=== PATIENT | female | born 1970 | race Caucasian/White ===

== ENCOUNTER 2017-05-13 01:19 | Emergency (ER) | payer BC ==
[2017-05-13 03:03] LABS: ADD MAN DIFF? NO
[2017-05-13 03:04] LABS: ABNORMAL IP MESSAGE 1; BASOPHILS % 0.2 % (0.0-2.0); EOSINOPHILS % 0.7 % (0.0-7.0); HEMATOCRIT 37.3 % (37.0-47.0); HEMOGLOBIN 12.6 g/dl (12.0-16.0); LYMPHOCYTES # 0.4 10^3/ul (0.8-2.9); LYMPHOCYTES % 8.7 % (15.0-51.0); MEAN CORPUSCULAR HEMOGLOBIN 35.1 pg (29.0-33.0); MEAN CORPUSCULAR HGB CONC 33.8 g/dl (32.0-37.0); MEAN CORPUSCULAR VOLUME 103.9 fl (82.0-101.0); MEAN PLATELET VOLUME 10.5 fl (7.4-10.4); MONOCYTE # 0.3 10^3/ul (0.3-0.9); MONOCYTES % 5.9 % (0.0-11.0); NEUTROPHIL # 3.9 10^3/ul (1.6-7.5); NEUTROPHILS % 84.3 % (39.0-77.0); PLATELET COUNT 98 10^3/UL (140-415); RED BLOOD COUNT 3.59 10^6/ul (4.20-5.40); RED CELL DISTRIBUTION WIDTH 15.4 % (11.5-14.5)
[2017-05-13 03:04] LABS: WHITE BLOOD COUNT 4.6 10^3/ul (4.8-10.8)
[2017-05-13 03:06] LABS: POSITIVE DIFF @See below
[2017-05-13] MEDS: SODIUM CHLORIDE 0.9% 1L BAG IV* (03:06)
[2017-05-13] MEDS: ACETAMINOPHEN 650MG/20.3ML CUP PO (03:06)
[2017-05-13] MEDS: ONDANSETRON 4 MG INJ IV (03:06)
[2017-05-13] MEDS: CEFTRIAXONE 1 GM/50 ML (PMX) 50 ML IVPB (03:11)
[2017-05-13 03:23] LABS: INR 1.21; PROTIME 15.5 Sec (11.9-14.9); PT RATIO 1.2
[2017-05-13 03:24] LABS: ALANINE AMINOTRANSFERASE 61 IU/L (13-69); ALBUMIN 3.5 g/dl (3.3-4.9); ALBUMIN/GLOBULIN RATIO 0.67; ALKALINE PHOSPHATASE 123 IU/L (42-121); ANION GAP 18 (8-16); ASPARTATE AMINO TRANSFERASE 75 IU/L (15-46); BILIRUBIN,INDIRECT 0.9 mg/dl (0-1.1); BILIRUBIN,TOTAL 0.9 mg/dl (0.2-1.3); BLOOD UREA NITROGEN 12 mg/dl (7-20); CALCIUM 8.6 mg/dl (8.4-10.2); CARBON DIOXIDE 25 mmol/L (21-31); CHLORIDE 110 mmol/L (97-110); CREATININE 0.77 mg/dl (0.44-1.00); GLUCOSE 100 mg/dl (70-220); LIPASE 189 U/L (23-300); PARTIAL THROMBOPLASTIN TIME 32.9 Sec (25.0-35.0); POTASSIUM 3.8 mmol/L (3.5-5.1); SODIUM 149 mmol/L (135-144); TOTAL PROTEIN 8.7 g/dl (6.1-8.1)
[2017-05-13 03:25] LABS: LACTIC ACID 1.9 mmol/L (0.5-2.0)
[2017-05-13 03:36] LABS: TROPONIN-I 0.103 ng/ml (0.00-0.12)
[2017-05-13 04:20] LABS: ADD UMIC YES; UR ASCORBIC ACID NEGATIVE (NEGATIVE); UR BILIRUBIN (Dip) NEGATIVE (NEGATIVE); UR BLOOD (Dip) 1+ mg/dL (NEGATIVE); UR CLARITY SLIGHTLY CLOUDY (CLEAR); UR COLOR YELLOW (YELLOW); UR GLUCOSE (Dip) NEGATIVE (NEGATIVE); UR KETONES (Dip) TRACE mg/dL (NEGATIVE); UR LEUKOCYTE ESTERASE (Dip) NEGATIVE Leu/ul (NEGATIVE); UR MUCUS MODERATE /HPF (NONE SEEN); UR NITRITE (Dip) NEGATIVE (NEGATIVE); UR RBC 1 /HPF (0-5); UR SPECIFIC GRAVITY (Dip) 1.023 (1.003-1.030); UR TOTAL PROTEIN (Dip) NEGATIVE (NEGATIVE); UR UROBILINOGEN (Dip) NEGATIVE (NEGATIVE); UR WBC 1 /HPF (0-5)
== END 2017-05-13 04:41 | disposition home or self-care (01) ==
LOC: E/R 01:19
DX: E86.0 Dehydration (principal); R19.7 Diarrhea, unspecified; M35.9 Systemic involvement of connective tissue, unspecified; R07.9 Chest pain, unspecified
CPT/HCPCS: 36415; 71045; 80053; 81001; 83605; 83690; 84484; 85025; 85610; 85730; 87040; 87086; 87400; 93005; 96374; 96375; 99285-25

== ENCOUNTER 2018-10-09 10:56 | Emergency (ER) | payer BC ==
[2018-10-09] MEDS: LIDOCAINE/MYLANTA 40 ML BTL PO (11:41)
[2018-10-09] MEDS: METOCLOPRAMIDE 10 MG INJ IV (11:41)
[2018-10-09] MEDS: FAMOTIDINE 20 MG TAB PO (11:41)
[2018-10-09 11:53] LABS: ADD MAN DIFF? NO
[2018-10-09 11:54] LABS: WHITE BLOOD COUNT 3.2 10^3/ul (4.8-10.8)
[2018-10-09 11:54] LABS: ABNORMAL IP MESSAGE 1; BASOPHILS % 0.3 % (0.0-2.0); EOSINOPHILS # 0.1 10^3/ul (0.0-0.5); EOSINOPHILS % 1.6 % (0.0-7.0); HEMATOCRIT 32.1 % (37.0-47.0); HEMOGLOBIN 10.3 g/dl (12.0-16.0); LYMPHOCYTES # 0.4 10^3/ul (0.8-2.9); LYMPHOCYTES % 12.5 % (15.0-51.0); MEAN CORPUSCULAR HEMOGLOBIN 35.2 pg (29.0-33.0); MEAN CORPUSCULAR HGB CONC 32.1 g/dl (32.0-37.0); MEAN CORPUSCULAR VOLUME 109.6 fl (82.0-101.0); MEAN PLATELET VOLUME 9.5 fl (7.4-10.4); MONOCYTE # 0.3 10^3/ul (0.3-0.9); NEUTROPHIL # 2.4 10^3/ul (1.6-7.5); PLATELET COUNT 100 10^3/UL (140-415); RED BLOOD COUNT 2.93 10^6/ul (4.20-5.40); RED CELL DISTRIBUTION WIDTH 16.3 % (11.5-14.5)
[2018-10-09 11:56] LABS: POSITIVE DIFF @See below
[2018-10-09 12:02] LABS: ALANINE AMINOTRANSFERASE 16 IU/L (13-69); ALBUMIN 3.3 g/dl (3.3-4.9); ALBUMIN/GLOBULIN RATIO 0.68; ALKALINE PHOSPHATASE 135 IU/L (42-121); ANION GAP 7 (5-13); ASPARTATE AMINO TRANSFERASE 62 IU/L (15-46); BILIRUBIN,INDIRECT 0.8 mg/dl (0-1.1); BILIRUBIN,TOTAL 0.8 mg/dl (0.2-1.3); BLOOD UREA NITROGEN 14 mg/dl (7-20); CALCIUM 9.1 mg/dl (8.4-10.2); CARBON DIOXIDE 28 mmol/L (21-31); CHLORIDE 107 mmol/L (97-110); CREATININE 0.86 mg/dl (0.44-1.00); Estimated GFR > 60 mL/min (>60); GLUCOSE 109 mg/dl (70-220); LIPASE 517 U/L (23-300); POTASSIUM 3.1 mmol/L (3.5-5.1); SODIUM 142 mmol/L (135-144); TOTAL PROTEIN 8.1 g/dl (6.1-8.1)
[2018-10-09 13:02] LABS: ADD UMIC NO; UR ASCORBIC ACID 40 mg/dL (NEGATIVE); UR BILIRUBIN (Dip) NEGATIVE (NEGATIVE); UR BLOOD (Dip) NEGATIVE (NEGATIVE); UR CLARITY CLEAR (CLEAR); UR COLOR YELLOW (YELLOW); UR GLUCOSE (Dip) NEGATIVE (NEGATIVE); UR KETONES (Dip) NEGATIVE (NEGATIVE); UR LEUKOCYTE ESTERASE (Dip) NEGATIVE Leu/ul (NEGATIVE); UR NITRITE (Dip) NEGATIVE (NEGATIVE); UR TOTAL PROTEIN (Dip) NEGATIVE (NEGATIVE); UR UROBILINOGEN (Dip) NEGATIVE (NEGATIVE)
[2018-10-09] MEDS ORDERED: POTASSIUM CHLORIDE (SR) 20 MEQ TAB PO (13:07)
[2018-10-09] MEDS: POTASSIUM CHLORIDE 20 MEQ POWDER FOR ORAL SOLN PO (13:19)
[2018-10-09 13:50] LABS: TROPONIN-I 0.035 ng/ml (0.000-0.120)
[2018-10-09] MEDS: HYDROCODONE/APAP (5/325) TAB PO (14:17)
== END 2018-10-09 13:35 | disposition home or self-care (01) ==
LOC: E/R 10:56
DX: K85.90 Acute pancreatitis without necrosis or infection, unspecified (principal)
CPT/HCPCS: 36415; 71045; 80053; 81003; 83690; 84484; 85025; 93005; 96374; 99285-25

== ENCOUNTER → 2018-10-24 | Outpatient (CLI) | payer BC | END | disposition home or self-care (01) | LOC: LAB 15:35 | DX: R05 Cough (principal) | CPT/HCPCS: 71046 ==